=== PATIENT | male | born 1980 | race Caucasian/White ===

== ENCOUNTER 2025-06-29 10:54 | Emergency (ER) | payer BC ==
[2025-06-29] MEDS: Ketorolac 30 MG/ML SDV IM ONE (12:02)
== END 2025-06-29 12:29 | disposition home or self-care (01) ==
LOC: JP.ED 10:54
DX: K02.9 Dental caries, unspecified (principal); I10 Essential (primary) hypertension; E11.9 Type 2 diabetes mellitus without complications; Z79.84 Long term (current) use of oral hypoglycemic drugs; Z79.899 Other long term (current) drug therapy
CPT/HCPCS: 99282; J1885